=== PATIENT | male | born 1960 | race Caucasian/White ===

== ENCOUNTER 2017-10-12 08:58 | Emergency (ER) | payer BC ==
--- NOTE | 2017-10-12 10:11 | UC ---
Haris Chairez Julia, scribed for Geeta Estevez MD on 10/12/17 at 0959 . Skin Complaint HPI - HPI Summary HPI Summary: This patient is a 57 year old M presenting to [facility] with a chief complaint of shingles like rash on his left shoulder and neck since 10/09/17. Patient reports soreness over the left shoulder and neck like muscle ache. The patient rates the pain 7/10 in severity. No analgesia taken No drainage. No analgesia taken. Not immunocompromised Patient denies history of shingles. He reports recent illness - uri Pt's medications reviewed this visit - History of Current Complaint Chief Complaint: UCRash Time Seen by Provider: 10/12/17 09:47 Stated Complaint: RASH Hx Obtained From: Patient Onset/Duration: Lasting Days Skin Exposure Onset/Duration: Days Ago Timing: Constant Pain Intensity: 7 Pain Scale Used: 0-10 Numeric Location: Other - L shoulder and neck this morning Character: Pain, Redness Associated Signs & Symptoms: Positive: Rash - painful - Allergy/Home Medications Allergies/Adverse Reactions: Allergies Allergy/AdvReac Type Severity Reaction Status Date / Time No Known Allergies Allergy Verified 03/07/16 13:56 Review of Systems Skin: Rash - L shoulder area Musculoskeletal: Myalgia - soreness to L shoulder All Other Systems Reviewed And Are Negative: Yes PMH/Surg Hx/FS Hx/Imm Hx Previously Healthy: Yes GI/ History: Other - Prostate CA Other GI/ History: Prostate CA - Surgical History Surgical History: Yes Surgery Procedure, Year, and Place: prostate, bladder removed, henry bladder amde - Family History Known Family History: Positive: Hypertension, Other - "cancer" - Social History Occupation: Employed Full-time - construction Lives: With Family Alcohol Use: Weekly Substance Use Type: None Smoking Status (MU): Former Smoker Type: Smokeless Tobacco - Immunization History Most Recent Tetanus Shot: utd Physical Exam Triage Information Reviewed: Yes Appearance: Well-Appearing, No Pain Distress Vital Signs: Initial Vital Signs Temp 97.7 F 10/12/17 09:12 Pulse 72 10/12/17 09:12 Resp 16 10/12/17 09:12 BP 146/101 10/12/17 09:12 Pulse Ox 99 10/12/17 09:12 Vital Signs Reviewed: Yes Eye Exam: Normal Eyes: Positive: Conjunctiva Clear ENT Exam: Normal ENT: Positive: Normal ENT inspection, Hearing grossly normal, TMs normal Dental Exam: Normal Neck exam: Normal Neck: Positive: Supple, Nontender, No Lymphadenopathy Respiratory Exam: Normal Respiratory: Positive: Lungs clear, Normal breath sounds Cardiovascular Exam: Normal Cardiovascular: Positive: RRR, No Murmur Abdominal Exam: Normal Abdomen Description: Positive: Nontender, No Organomegaly, Soft Musculoskeletal Exam: Normal Musculoskeletal: Positive: Strength Intact Neurological Exam: Normal Neurological: Positive: Alert Psychological Exam: Normal Psychological: Positive: Normal Response To Family Skin: Positive: rashes - left posterior shoulder patch of tightly clusterd raised mild erythema lesions few vesicular mild TTP pt also wtih 2 similar lesions anterior left shoulder- pt states new this am Course/Dx - Course Course Of Treatment: Pt wtih cluster rash and discomfort left posterior shoulder with develop of new lesions today - c/w shingles. valtrex. pred. pcp f/u. return precaution. general precaution - Diagnoses Provider Diagnoses: shingles left shoulder Discharge - Discharge Plan Condition: Stable Disposition: HOME Prescriptions: predniSONE [Prednisone] 20 mg PO DAILY #15 tablet Valacyclovir HCl [Valacyclovir] 1,000 mg PO TID #21 tablet Patient Education Materials: Shingles (ED) Referrals: Terri Way [Primary Care Provider] - Additional Instructions: - Take anti-viral and prednisone as prescribed until gone - Okay to alternate ibuprofen (Advil, Motrin) and tylenol every 3 hours for pain. Take with food - contact your doctor to schedule a follow-up appointment. Contact your doctor or return with questions or concerns The documentation as recorded by the Haris mcgovern Julia accurately reflects the service I personally performed and the decisions made by , Geeta Estevez MD.
== END 2017-10-12 10:20 | disposition home or self-care (01) ==
LOC: UCEAST 08:58
DX: B02.9 Zoster without complications (principal); Z85.46 Personal history of malignant neoplasm of prostate; Z87.891 Personal history of nicotine dependence
CPT/HCPCS: 99212; G0463

== ENCOUNTER 2019-06-03 17:09 | Emergency (ER) | payer BC ==
--- NOTE | 2019-06-03 17:12 | UC ---
Eye Complaint HPI - HPI Summary HPI Summary: Patient is a 58 year old male , who present today to the urgent care with eye symptoms for past days. While building a deck , he was cutting the word with a saw feels that possibly saw dust flew into his left eye approx 4 hours ago due to wind. He tried to flush his eyes. He does not use contact lenses. There is conjunctival redness, irritation, increased lacrimation the foreign body sensation. Suddenly diagnosed with glaucoma and started using the eyedrops(intraocular pressure was 21 on the left and 28 on the right). He sees Dr. Caballero. - History of Current Complaint Stated Complaint: EYE IRRITATION Time Seen by Provider: 06/03/19 17:10 Hx Obtained From: Patient - Allergies/Home Medications Allergies/Adverse Reactions: Allergies Allergy/AdvReac Type Severity Reaction Status Date / Time No Known Allergies Allergy Verified 06/03/19 17:14 PMH/Surg Hx/FS Hx/Imm Hx - Additional Past Medical History Additional PMH: Past Medical History : Hypertension, bladder cancer, cough, Past Surgical History: Prostate surgery, bladder removal with neobladder formation Family History : non contributory Social History : Weekly alcohol, former smoker, no drug use. Previously Healthy: Yes - Surgical History Surgical History: Yes Surgery Procedure, Year, and Place: prostate, bladder removed, henry bladder amde - Family History Known Family History: Positive: Hypertension, Other - "cancer", Non-Contributory - Social History Alcohol Use: Weekly Substance Use Type: None Smoking Status (MU): Former Smoker Type: Smokeless Tobacco - Immunization History Most Recent Tetanus Shot: utd Review of Systems All Other Systems Reviewed And Are Negative: Yes Constitutional: Positive: Negative Skin: Positive: Negative Eyes: Positive: Blurred Vision, Drainage, Eye Redness - Left eye ENT: Positive: Negative Respiratory: Positive: Negative Cardiovascular: Positive: Negative Gastrointestinal: Positive: Negative Genitourinary: Positive: Negative Motor: Positive: Negative Neurovascular: Positive: Negative Musculoskeletal: Positive: Negative Neurological: Positive: Negative Psychological: Positive: Negative Is Patient Immunocompromised?: No Physical Exam - Summary Physical Exam Summary: Vital Signs Reviewed: Yes A+Ox3, no distress Eyes: Left eye: Conjunctiva eryethema, clear discharge. No foreign body identified. Reexamination after local anesthesia- no foreign body identified after everting the upper eyelid. ENT: Hearing grossly normal neck: supple Respiratory: Positive: No respiratory distress, No accessory muscle use Cardiovascular: skin color reflect adequate perfusion Musculoskeletal Exam: ALLEN x 4 without difficulty Neurological: Positive: Alert, ambulatory without difficulty Psychological: Positive: Normal Response To Family Skin: Positive: no rash, no ecchymosis Triage Information Reviewed: Yes Vital Signs Reviewed: Yes Procedures - Eye Procedure Left Alcaine Drops Administered: No - tetracaine 0.5% eyedrops for local anesthesia Eye FB Removal: other - no foreign body identified Antibiotic Ointment/Drps Admin: left eye - erythromycin ointment Eye Complaint Course/Dx - Course Course Of Treatment: During the visit today, we after local anesthesia with tetracaine eye was examined and no foreign body was was identified after everting the upper eyelid is well. After fluorescein stain and under renee lamp, a circular corneal abrasion was identified at 2 o'clock position. With increased uptake of the fluorescein stain. Discussed the findings and further plan. Since he does not use contact lenses, erythromycin ointment was started here and advised to use it every 6 hours for next 5-7 days and follow-up with ophthalmology if no improvement in next [address] Caballero and will follow up with him if needed. Patient expressed understanding . - Differential Dx/Diagnosis Provider Diagnosis: Corneal abrasion, left Discharge ED - Sign-Out/Discharge Documenting (check all that apply): Patient Departure All imaging exams completed and their final reports reviewed: No Studies - Discharge Plan Condition: Stable Disposition: HOME Patient Education Materials: Corneal Abrasion (ED) Referrals: Terri Way [Primary Care Provider] - Additional Instructions: Please start using the eye ointment Used eye protection Sunglasses when outside Please follow up with ophthalmology for the consult if no improvement over the next 2-3 years Your blood pressure high in Urgent care today , plan follow up with PCP for better control Return to Urgent care / ER if symptoms get worse. - Billing Disposition and Condition Condition: STABLE Disposition: Home
--- OUTSIDE RECORDS SUMMARY | 2019-06-03 17:13 | XMS REPORT | Continuity of Care Document ---
:1960 External Reference #:[id number] Author Name Alek Caballero M.D. Address [address] [place] [id number] Care Team Providers Name Role Phone Terri Bermudez Care Team Information [employer] [phone] Problems Description No Information Available Social History Type Date Description Comments Sex Unknown ETOH Use Occasionally consumes alcohol Tobacco Use Start: Unknown Patient has never smoked Smoking Status Reviewed: 05/25/19 Patient has never smoked Allergies, Adverse Reactions, Alerts Active Allergies Reaction Severity Comments Date Flu Serum 05/25/2019 Medications Active Medications SIG Qnty Indications Ordering Provider Date Irbesartan Terri Bermudez 150mg Tablets Atorvastatin Calcium Terri Bermudez 20mg Tablets Immunizations Description No Information Available Vital Signs Date Vital Result Comment 05/25/2019 1:14pm Intraocular Pressure Right Eye 28 mmHg Intraocular Pressure Left Eye 24 mmHg Cornea Thickness Left Eye 567 m Cornea Thickness Right Eye 558 m Pachymetry adjusted IOP Right Eye -1 Pachymetry adjusted IOP Left Eye -1 Results Description No Information Available Procedures Date Code Description Status 05/25/2019 49329 Fundus Photography W/Interpretation & Report Completed 05/25/2019 47330 Ophthalmoscopy Initial Completed 05/25/2019 14169 Refraction Completed 05/25/2019 15973 Eye Exam New Comprehensive Completed 05/25/2019 60227 Corneal Pachymetry, Unilateral/Bilateral Completed Medical Devices Description No Information Available Encounters Description No Information Available Assessments Date Code Description Provider 05/25/2019 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 risk, bilateral 05/25/2019 H04.123 Dry eye syndrome of bilateral lacrimal glands Alek Caballero M.D. 05/25/2019 H52.31 Anisometropia Alek Caballero M.D. Plan of Treatment 05/25/2019 - Alek Caballero M.D.H40.023 Open angle with borderline findings, high risk, bilateralFollow up:VF OCT nerve, gonio 1-2 mosH04.123 Dry eye syndrome of bilateral lacrimal glandsFollow up:VF OCT nerve, gonio 1-2 mosH52.31 AnisometropiaFollow up:VF OCT nerve, gonio 1-2 mos Functional Status Description No Information Available Mental Status Description No Information Available Referrals Description No Information Available
[2019-06-03 17:24] VITALS: BP 156/95
[2019-06-03] MEDS ORDERED: Tetracaine 0.5% OPTH.SOL 4 ML* 1 DROP BTL LEFT EYE ONE (17:31)
[2019-06-03] MEDS ORDERED: Fluorescein Sodium TOPICAL* 1 MG TEST STRIP OPHTHALMIC ONE (17:31)
[2019-06-03] MEDS ORDERED: Erythromycin OPTH OINT* APPLIC OINT LEFT EYE ONE (17:43)
== END 2019-06-03 18:00 | disposition home or self-care (01) ==
LOC: UCEAST 17:09
DX: S05.02XA Injury of conjunctiva and corneal abrasion without foreign body, left eye, initial encounter (principal); I10 Essential (primary) hypertension; Z85.51 Personal history of malignant neoplasm of bladder; Z87.891 Personal history of nicotine dependence; X58.XXXA Exposure to other specified factors, initial encounter; Y93.89 Activity, other specified; Y92.9 Unspecified place or not applicable
CPT/HCPCS: 99212; A9270-GY; G0463

== ENCOUNTER 2019-10-09 05:50 | Day surgery (SDC) | payer BC ==
--- NOTE | 2019-09-26 18:33 | HP ---
HISTORY AND PHYSICAL: DATE OF ADMISSION/SURGERY: 10/09/19 DATE OF OFFICE VISIT: 09/26/19 SURGEON: Perla Armendariz MD * (DICTATED BY GM MELARA) PROCEDURE: Left knee arthroscopy with partial meniscectomy, possible chondroplasty, possible synovectomy, and possible plica excision. CHIEF COMPLAINT: Left knee pain. HISTORY OF PRESENT ILLNESS: Mr. Lentz is a 59-year-old gentleman with complaints of left knee pain. An MRI confirms a medial meniscus tear. He has elected to proceed with surgery. PAST MEDICAL HISTORY: Hypertension, high cholesterol, prostate cancer, and history of bladder cancer. PAST SURGICAL HISTORY: Bladder surgery, prostatectomy, left knee arthroscopy, and hernia repair. CURRENT MEDICATIONS: 1. Atorvastatin. 2. Calcium 20 mg a day. 3. Irbesartan 150 mg a day. 4. Venlafaxine 37.5 mg daily. ALLERGIES: No known drug allergies. FAMILY HISTORY: Diabetes, coronary artery disease, stroke and cancer. SOCIAL HISTORY: He is a 59-year-old gentleman. He lives with his . He does not smoke. REVIEW OF SYSTEMS: A complete 14-point review of systems was reviewed with the patient. It was positive for bowel and bladder, problems following anesthesia. He denies history of DVT or PE. PHYSICAL EXAMINATION GENERAL: He is well developed, well nourished, in no acute distress. VITAL SIGNS: He stands 70 inches tall, weighs 209 pounds. His blood pressure is 139/90, his heart rate is 78. HEENT: Normocephalic, atraumatic. NECK: Supple. No palpable lymph nodes. PULMONARY: The lungs are clear to auscultation bilaterally. CARDIO: Regular rate and rhythm. Strong S1, S2. ABDOMEN: Soft, nontender, nondistended. NEUROLOGICAL: He is alert and oriented x3. MUSCULOSKELETAL: Left lower extremity: The skin is intact. There are no open wounds or abrasions. There is mild effusion of the left knee joint and tenderness along the medial joint line. Positive Apley's, positive Lesly's, negative Marci's. 2+ dorsalis pedis pulse. He is able to dorsiflex and plantarflex. ASSESSMENT AND PLAN: Mr. Lentz is a 59-year-old gentleman with a medial meniscus tear confirmed on MRI. He has elected to proceed with a left knee arthroscopy with partial meniscectomy , possible chondroplasty, possible synovectomy and possible plica excision. The surgery is scheduled for 10/09/[address] Armendariz discussed the risks and benefits of the surgery at today's visit and all of his questions were answered. He will follow up with Dr. Armendariz 2 weeks after the surgery. GM MELARA [id number]/[facility] #: [id number] MTDD
[~2019-10-09 05:50] MED LIST: Buffered Lidocaine 1% SYRIN* 1 ML/SYRINGE INTRADERM ONE
[2019-10-09] MEDS ORDERED: Lactated Ringers 1000 ML Bag* 1,000 ML IV SCH (06:00)
[2019-10-09] MEDS ORDERED: ceFAZolin 2 GM in NS PREMIX(*) 2 GM/100 ML BAG IVPB ONE (06:06)
[2019-10-09] MEDS ORDERED: Midazolam* 1 MG/ML 2 ML VIAL (2 MG) ONE (07:07)
[2019-10-09] MEDS ORDERED: fentaNYL* 50 MCG/ML 2 ML VIAL (100 MCG VIAL) ONE ×2 (07:07→07:52)
[2019-10-09] MEDS ORDERED: ROPIVACAINE 5 MG/ML 30 ML BTL (0.5%) ONE (07:10)
[2019-10-09] MEDS ORDERED: EPINEPHRINE 1 MG/ML 1 ML VIAL ONE (07:10)
[2019-10-09] MEDS ORDERED: methylPREDNISolone ACETATE 80* 80 MG/ML 1 ML VIAL ONE (07:10)
[2019-10-09] MEDS ORDERED: Naloxone* 0.4 MG/ML 1 ML VIAL IV PRN (07:14)
[2019-10-09] MEDS ORDERED: HYDROmorphone INJ1* 1 MG/ML SYRINGE IV PRN (07:14)
[2019-10-09] MEDS ORDERED: Ibuprofen TAB* 400 MG PO PRN (07:14)
[2019-10-09] MEDS ORDERED: Acetaminophen TAB* 325 MG PO PRN (07:14)
[2019-10-09] MEDS ORDERED: Lidocaine 2% PF * 5 ML VIAL ONE (07:42)
[2019-10-09] MEDS ORDERED: Ondansetron INJ* 2 MG/ML VIAL ONE (07:42)
[2019-10-09] MEDS ORDERED: Propofol* 10 MG/ML 20 ML BTL ONE (07:42)
[2019-10-09] MEDS ORDERED: Dexamethasone IV* 4 MG/ML 1 ML (4 MG) ONE (07:42)
[2019-10-09] MEDS ORDERED: oxyCODONE/Acetamin 5/325 MG* TAB ONE (09:06)
[2019-10-09 09:37] VITALS: BP 147/85
--- NOTE | 2019-10-10 04:25 | OP ---
DATE OF OPERATION: 10/09/19 - [facility] DATE OF : [birth year] SURGEON: Perla Armendariz MD. FEEDER CATCHER TOBACCO: GM Santacruz. Ms. Albert did help throughout the procedure with preparation of the leg, wound retraction, and manipulation of the knee and wound closure. ANESTHESIOLOGIST: Dr. Caro. ANESTHESIA: General. PRE-OP DIAGNOSES: Left knee medial meniscal tear, mild osteoarthritis. POST-OP DIAGNOSES: Left knee complex medial meniscal tear, [id number] osteoarthritis of the medial and patellofemoral compartments, anterior synovitis. OPERATIVE PROCEDURE: Left knee arthroscopy with partial medial meniscectomy, patellofemoral chondroplasty, anterior synovectomy. SPECIMEN: None. COMPLICATIONS: None. ESTIMATED BLOOD LOSS: Less than 25 cc. BRIEF HISTORY/INDICATION: Mr. Lnetz is a 59-year-old gentleman with 3 months of acute onset left knee pain and mechanical symptoms. He failed conservative treatment. MRI confirmed the medial meniscal tear. Due to continued pain and decreased quality of life, he elected to undergo left knee arthroscopy with partial meniscectomy. Informed consent was obtained from the patient. He understood the risks of surgery included, but were not limited to, bleeding, infection, damage to nearby structures, continued pain, need for further surgery , retear of the meniscus, progression of arthritis, stroke, heart attack, blood clot, and . He wished to proceed. INTRAOPERATIVE FINDINGS: Intraoperatively, the patient was noted to have a complex tear of the posteromedial meniscus with longitudinal and horizontal component involving the posterior 50% of the medial meniscus in the red-white and red-red zone. He was noted to have grade 3 and 4 Outerbridge cartilage changes in the medial and patellofemoral compartment with frayed and flapped cartilage. He had exposed subchondral bone in the medial patellofemoral compartment. He was also noted to have a significant amount of anterior synovitis. DESCRIPTION OF PROCEDURE: Mr. Lentz was identified in the preanesthesia unit. His left lower extremity was marked as the correct operative side. Informed consent was signed and placed in the chart. The patient was taken to the operating room and placed under anesthesia without difficulty. The left lower extremity was prepped and draped in the usual sterile fashion. Preop time-out was made to correctly identify the patient's side and site. Appropriate perioperative antibiotics were given within 1 hour of incision. A 1.5 cm standard anterolateral portal incision was made with a 10-blade and carried down to the capsule. Trocar was introduced. As soon as the light and water sources were turned on, there was immediate visualization of the suprapatellar pouch. A tour of the knee joint was performed. Suprapatellar pouch showed no obvious abnormalities. Patellofemoral compartment showed grade 3 and 4 Outerbridge cartilage changes with frayed and flapped cartilage as well as exposed subchondral bone. Medial gutter showed no loose body or plica. Anterior joint line had significant synovitis. The medial compartment showed a complex tear of the posterior 50% of the medial meniscus. Medial femoral condyle showed grade 3 and 4 Outerbridge cartilage changes with exposed subchondral bone. The ACL and PCL appeared to be intact. The knee was placed in a [id number] position. Lateral compartment was evaluated. There were minimal degenerative changes and no obvious meniscal tear. Lateral gutter showed no loose body or plica. Under direct visualization, a medial portal incision was made with a 10-blade. A probe was introduced and a second tour of the knee joint was performed. No additional findings were noted. Radiofrequency ablation wand and shaver were used to perform anterior synovectomy. This improved visualization for the case. Any inflamed soft tissue which impinged during patellofemoral range of motion was carefully removed. Next, the radiofrequency ablation wand was used to smooth any cartilage fraying and flapping along the patellofemoral compartment. A straight biter and shaver were used to perform partial medial meniscectomy. There was a complex tear involving the posterior 50% of the medial meniscus. A smooth border of the medial meniscus was obtained. Further probing of the meniscus showed no additional tears. Radiofrequency ablation wand was used to further smooth the edge of the meniscus. This was mainly carried out in the white-red zone. The knee was copiously irrigated with sterile saline. All instruments were removed. Incisions were closed with 3-0 nylon suture. Sterile Xeroform, 4x4s, and Webril were used to cover the incision. Anibal wrap and cold pack were placed over this. The patient's anesthesia was reversed without difficulty. He was taken to the PACU in stable condition. Intended weightbearing will be weightbearing as tolerated. Intended DVT prophylaxis will be aspirin. He will follow up in 2 weeks' time for suture removal. [id number]/[facility] #: [id number] ILA
== END 2019-10-09 09:38 | disposition home or self-care (01) ==
LOC: OR 05:50
PROVIDERS: ATTEND Orthopaedic Surgery Adult Reconstructive Orthopaedic Surgery
DX: S83.232A Complex tear of medial meniscus, current injury, left knee, initial encounter (principal); M17.12 Unilateral primary osteoarthritis, left knee; M65.862 Other synovitis and tenosynovitis, left lower leg; X58.XXXA Exposure to other specified factors, initial encounter; Y92.9 Unspecified place or not applicable; I10 Essential (primary) hypertension; M19.90 Unspecified osteoarthritis, unspecified site; I44.7 Left bundle-branch block, unspecified; E78.00 Pure hypercholesterolemia, unspecified; Z85.46 Personal history of malignant neoplasm of prostate; Z85.51 Personal history of malignant neoplasm of bladder
CPT/HCPCS: A9270-GY; J0690; J1040; J1100; J2250; J2405; J2704; J2795; J3010